=== PATIENT | female | born 1965 | race Two or more races ===

== ENCOUNTER 2020-11-22 10:25 | Inpatient (IN) | payer BC, MEDICAID ==
[~2020-11-22] VITALS: Ht 170.2 cm; Wt 101.6 kg
[2020-11-22] MEDS ORDERED: methylPREDNISolone SOD SUCC 125 MG/2 ML VL IV ONE (10:45)
[2020-11-22] MEDS ORDERED: CHOLECALCIFEROL (VITD3) 2,000 UNIT CAP/TAB PO ONE (10:45)
[2020-11-22] MEDS ORDERED: ZINC SULFATE 220mg CAP or TAB PO ONE (10:45)
[2020-11-22] MEDS ORDERED: ACETAMINOPHEN 325 MG TAB PO ONE (10:45)
[2020-11-22] MEDS ORDERED: ASCORBIC ACID 500 MG TAB PO ONE (10:45)
[2020-11-22 11:36] LABS: Basophils # (auto) 0 10 ^3/uL (0-0.2); Basophils % (auto) 0.4 % (0.0-2.0); Eosinophils # (auto) 0 10 ^3/uL (0-0.8); Eosinophils % (auto) 0.4 % (0.0-7.0); Hematocrit 39.7 % (36.0-46.0); Hemoglobin 13.7 g/dL (12.2-16.2); Lymphocytes # (auto) 0.9 10 ^3/uL (0.4-5.4); Lymphocytes % (auto) 27.8 % (10.0-50.0); Mean Corpuscular Hemoglobin 30.4 pg (28.0-32.0); Mean Corpuscular Hgb Conc. 34.6 g/dL (32.0-36.0); Mean Corpuscular Volume 87.8 fL (80.0-100.0); Monocytes # (auto) 0.2 10 ^3/uL (0-1.3); Monocytes % (auto) 5.8 % (0.0-12.0); Neutrophils # (auto) 2.2 10 ^3/uL (1.6-8.6); Neutrophils % (auto) 65.6 % (37.0-80.0); Red Blood Cells 4.52 10^6/uL (4.0-5.20); Red Cell Distribution Width 12.3 % (11.8-14.3); White Blood Cell 3.4 10^3/uL (4.4-10.8)
[2020-11-22 11:59] LABS: Albumin 3.7 g/dL (3.4-5.0); Anion Gap 9 (5-15); Blood Urea Nitrogen 11 mg/dL (7-18); Calcium 8.4 mg/dL (8.5-10.1); Carbon Dioxide 23 mmol/L (21-32); Chloride 105 mmol/L (98-107); Glucose 188 mg/dL (74-106); Potassium 3.7 mmol/L (3.5-5.1); Sodium 137 mmol/L (136-145)
[2020-11-22 12:10] LABS: Alanine Aminotransferase 204 U/L (13-56); Alkaline Phosphatase 86 U/L (45-117); Aspartate Aminotransferase 99 U/L (15-37); BUN/Creatinine Ratio 17.7; Bilirubin, Total 0.4 mg/dL (0.2-1.0); CRP High Sensitivity 2.23 mg/dL (< 0.3); GFR African American 129 mL/min; GFR Non-African American 107 mL/min; Total Protein 8.1 g/dL (6.4-8.2)
[2020-11-22] MEDS ORDERED: ACETAMINOPHEN 500 MG TAB PO PRN (16:00)
[2020-11-22] MEDS ORDERED: ALBUTEROL SULF HFA 90MCG INH 200DOSE IN PRN (16:00)
[2020-11-22] MEDS ORDERED: REMDESIVIR PER PHARMACY 0 ML IV SCH (16:00)
[2020-11-22] MEDS ORDERED: NITROGLYCERIN 0.4 MG SL TAB SL PRN (16:15)
[2020-11-22] MEDS ORDERED: DEXTROSE (50%) 50ML SYRG IV ONE (16:15)
[2020-11-22] MEDS ORDERED: MORPHINE SULFATE INJECTION 2 MG/2 ML SYRG IV PRN (16:15)
[2020-11-22 16:38] LABS: Basophils # (auto) 0 10 ^3/uL (0-0.2); Basophils % (auto) 0.2 % (0.0-2.0); Eosinophils # (auto) 0 10 ^3/uL (0-0.8); Hematocrit 40.3 % (36.0-46.0); Hemoglobin 13.9 g/dL (12.2-16.2); Lymphocytes # (auto) 0.6 10 ^3/uL (0.4-5.4); Lymphocytes % (auto) 16.6 % (10.0-50.0); Mean Corpuscular Hemoglobin 30.5 pg (28.0-32.0); Mean Corpuscular Hgb Conc. 34.6 g/dL (32.0-36.0); Mean Corpuscular Volume 88.1 fL (80.0-100.0); Monocytes # (auto) 0.1 10 ^3/uL (0-1.3); Monocytes % (auto) 2.1 % (0.0-12.0); Neutrophils # (auto) 2.9 10 ^3/uL (1.6-8.6); Neutrophils % (auto) 81.1 % (37.0-80.0); Red Blood Cells 4.57 10^6/uL (4.0-5.20); Red Cell Distribution Width 12.2 % (11.8-14.3); White Blood Cell 3.6 10^3/uL (4.4-10.8)
[2020-11-22 16:51] LABS: Albumin 3.7 g/dL (3.4-5.0); Calcium 8.5 mg/dL (8.5-10.1); Magnesium 2.3 mg/dL (1.6-2.6); Potassium 3.8 mmol/L (3.5-5.1)
[2020-11-22 17:00] LABS: BUN/Creatinine Ratio 19.3; Bilirubin, Total 0.4 mg/dL (0.2-1.0); CRP High Sensitivity 2.76 mg/dL (< 0.3); Total Protein 8.2 g/dL (6.4-8.2)
[2020-11-22] MEDS ORDERED: InsuLIN REG 1unit/0.01ml Soln (100units/ml) SC ONE (17:00)
[2020-11-22] MEDS ORDERED: ACCU-CHEK COMFORT CURVE STRIP VI ONE (17:00)
[2020-11-22 17:03] LABS: Thyroid Stimulating Hormone 0.24 uIU/mL (0.358-3.74)
[2020-11-22 17:47] LABS: Urine Bacteria NONE SEEN /hpf (None Seen); Urine Blood Negative /uL (Negative); Urine Mucus FEW (None Seen); Urine Specific Gravity 1.027 (1.001-1.035); Urine WBC 5 /hpf (0 - 5)
[2020-11-22] MEDS ORDERED: REMDESIVIR 200 MG in NS 210ml LOADING DOSE ADULT IV ONE (18:00)
[2020-11-22] MEDS: ENOXAPARIN SOD 40 MG/0.4 ML SYRINGE SC SCH (22:24)
[2020-11-22] MEDS: ALBUTEROL SULF HFA 90MCG INH 200DOSE IN SCH (22:25)
[2020-11-23 01:30] VITALS: BP 117/56
[2020-11-23 05:27] LABS: Basophils # (auto) 0 10 ^3/uL (0-0.2); Basophils % (auto) 0.6 % (0.0-2.0); Eosinophils # (auto) 0 10 ^3/uL (0-0.8); Eosinophils % (auto) 0.1 % (0.0-7.0); Hematocrit 38.5 % (36.0-46.0); Lymphocytes # (auto) 1.4 10 ^3/uL (0.4-5.4); Lymphocytes % (auto) 33.4 % (10.0-50.0); Mean Corpuscular Hemoglobin 30.1 pg (28.0-32.0); Mean Corpuscular Hgb Conc. 33.8 g/dL (32.0-36.0); Monocytes # (auto) 0.4 10 ^3/uL (0-1.3); Monocytes % (auto) 8.5 % (0.0-12.0); Neutrophils # (auto) 2.4 10 ^3/uL (1.6-8.6); Neutrophils % (auto) 57.4 % (37.0-80.0); Nucleated Red Blood Cells % 0.1 %; Red Blood Cells 4.33 10^6/uL (4.0-5.20); Red Cell Distribution Width 12.3 % (11.8-14.3); White Blood Cell 4.2 10^3/uL (4.4-10.8)
[2020-11-23 05:45] LABS: Albumin 3.5 g/dL (3.4-5.0); Calcium 8.5 mg/dL (8.5-10.1); Potassium 3.4 mmol/L (3.5-5.1)
[2020-11-23 05:54] LABS: BUN/Creatinine Ratio 27.1; Bilirubin, Total 0.3 mg/dL (0.2-1.0); CRP High Sensitivity 2.63 mg/dL (< 0.3); Total Protein 7.6 g/dL (6.4-8.2)
[2020-11-23] MEDS: ALBUTEROL SULF HFA 90MCG INH 200DOSE IN SCH ×3 (06:38→22:03)
[2020-11-23] MEDS: AZITHROMYCIN 500MG/ 250ML 250 ML IV SCH (10:37)
[2020-11-23] MEDS: DexAMETHasone SOD PHOS 10MG/1ML VIAL INJ IV SCH (10:38)
[2020-11-23] MEDS: ZINC SULFATE 220mg CAP or TAB PO SCH (10:39)
[2020-11-23] MEDS: ASCORBIC ACID 1,000 MG TAB PO SCH (10:39)
[2020-11-23] MEDS: ENOXAPARIN SOD 40 MG/0.4 ML SYRINGE SC SCH ×2 (10:39→21:46)
[2020-11-23] MEDS: CHOLECALCIFEROL (VITD3) 2,000 UNIT CAP/TAB PO SCH (10:39)
[2020-11-23] MEDS: REMDESIVIR 100mg 100 MG in SODIUM CHL 0.9% 230 ML IV SCH (14:23)
[2020-11-23] MEDS ORDERED: DEXTROSE (50%) 50ML SYRG IV PRN (21:15)
[2020-11-23] MEDS: InsuLIN REG 1unit/0.01ml Soln (100units/ml) SC SCH (21:46)
[2020-11-23] MEDS: ACCU-CHEK COMFORT CURVE STRIP VI SCH (21:46)
[2020-11-23 22:07] VITALS: BP 140/76
[2020-11-23 22:50] VITALS: BP 140/76
[2020-11-23] MEDS ORDERED: METF-370 PO (23:02)
[2020-11-24 05:30] VITALS: BP 110/67
[2020-11-24 06:33] LABS: Albumin 3.2 g/dL (3.4-5.0); Calcium 8.3 mg/dL (8.5-10.1); Potassium 3.2 mmol/L (3.5-5.1)
[2020-11-24] MEDS: ACCU-CHEK COMFORT CURVE STRIP VI SCH ×4 (06:36→22:22)
[2020-11-24] MEDS: InsuLIN REG 1unit/0.01ml Soln (100units/ml) SC SCH ×4 (06:41→23:05)
[2020-11-24 06:42] LABS: Basophils # (auto) 0 10 ^3/uL (0-0.2); Basophils % (auto) 0.3 % (0.0-2.0); Eosinophils # (auto) 0 10 ^3/uL (0-0.8); Eosinophils % (auto) 0.4 % (0.0-7.0); Hematocrit 37.6 % (36.0-46.0); Hemoglobin 12.8 g/dL (12.2-16.2); Lymphocytes # (auto) 1.9 10 ^3/uL (0.4-5.4); Lymphocytes % (auto) 52.8 % (10.0-50.0); Mean Corpuscular Hemoglobin 30.3 pg (28.0-32.0); Mean Corpuscular Hgb Conc. 34.2 g/dL (32.0-36.0); Mean Corpuscular Volume 88.6 fL (80.0-100.0); Monocytes # (auto) 0.3 10 ^3/uL (0-1.3); Monocytes % (auto) 8.9 % (0.0-12.0); Neutrophils # (auto) 1.3 10 ^3/uL (1.6-8.6); Neutrophils % (auto) 37.6 % (37.0-80.0); Nucleated Red Blood Cells % 0.1 %; Red Blood Cells 4.24 10^6/uL (4.0-5.20); Red Cell Distribution Width 12.4 % (11.8-14.3); White Blood Cell 3.6 10^3/uL (4.4-10.8)
[2020-11-24 07:00] LABS: BUN/Creatinine Ratio 26.5
[2020-11-24 07:01] LABS: Bilirubin, Total 0.2 mg/dL (0.2-1.0); CRP High Sensitivity 1.75 mg/dL (< 0.3); Total Protein 7.3 g/dL (6.4-8.2)
[2020-11-24 08:50] VITALS: BP 118/74
[2020-11-24] MEDS: ALBUTEROL SULF HFA 90MCG INH 200DOSE IN SCH ×2 (10:01→22:23)
[2020-11-24] MEDS ORDERED: POTASSIUM CHL 20 Meq TABLET PO ONE (10:30)
[2020-11-24] MEDS: CHOLECALCIFEROL (VITD3) 2,000 UNIT CAP/TAB PO SCH (10:51)
[2020-11-24] MEDS: ASCORBIC ACID 1,000 MG TAB PO SCH (10:51)
[2020-11-24] MEDS: ZINC SULFATE 220mg CAP or TAB PO SCH (10:51)
[2020-11-24] MEDS: DexAMETHasone SOD PHOS 10MG/1ML VIAL INJ IV SCH (10:52)
[2020-11-24] MEDS: AZITHROMYCIN 500MG/ 250ML 250 ML IV SCH (10:52)
[2020-11-24] MEDS: ENOXAPARIN SOD 40 MG/0.4 ML SYRINGE SC SCH ×2 (10:52→22:22)
[2020-11-24 12:30] VITALS: BP 101/66
[2020-11-24] MEDS: REMDESIVIR 100mg 100 MG in SODIUM CHL 0.9% 230 ML IV SCH (15:24)
[2020-11-24 16:50] VITALS: BP 119/70
[2020-11-24 21:57] VITALS: BP 119/62
[2020-11-25 05:00] VITALS: BP 100/65
[2020-11-25] MEDS: ACCU-CHEK COMFORT CURVE STRIP VI SCH ×4 (06:25→22:11)
[2020-11-25] MEDS: InsuLIN REG 1unit/0.01ml Soln (100units/ml) SC SCH ×4 (06:26→23:01)
[2020-11-25 06:50] LABS: Basophils # (auto) 0 10 ^3/uL (0-0.2); Basophils % (auto) 0.2 % (0.0-2.0); Eosinophils # (auto) 0 10 ^3/uL (0-0.8); Eosinophils % (auto) 0.4 % (0.0-7.0); Hematocrit 37.7 % (36.0-46.0); Hemoglobin 12.8 g/dL (12.2-16.2); Lymphocytes # (auto) 2.1 10 ^3/uL (0.4-5.4); Lymphocytes % (auto) 54.1 % (10.0-50.0); Mean Corpuscular Hemoglobin 30.1 pg (28.0-32.0); Mean Corpuscular Volume 88.5 fL (80.0-100.0); Monocytes # (auto) 0.3 10 ^3/uL (0-1.3); Monocytes % (auto) 9.2 % (0.0-12.0); Neutrophils # (auto) 1.4 10 ^3/uL (1.6-8.6); Neutrophils % (auto) 36.1 % (37.0-80.0); Nucleated Red Blood Cells % 0.1 %; Red Blood Cells 4.25 10^6/uL (4.0-5.20); White Blood Cell 3.8 10^3/uL (4.4-10.8)
[2020-11-25 06:51] LABS: Potassium 3.3 mmol/L (3.5-5.1)
[2020-11-25 07:08] LABS: Albumin 3.1 g/dL (3.4-5.0); BUN/Creatinine Ratio 32.4; Bilirubin, Total 0.3 mg/dL (0.2-1.0); Calcium 8.1 mg/dL (8.5-10.1); Total Protein 7.1 g/dL (6.4-8.2)
[2020-11-25] MEDS: ALBUTEROL SULF HFA 90MCG INH 200DOSE IN SCH (08:25)
[2020-11-25 09:00] VITALS: BP 121/72
[2020-11-25] MEDS: DexAMETHasone SOD PHOS 10MG/1ML VIAL INJ IV SCH (09:19)
[2020-11-25] MEDS: ZINC SULFATE 220mg CAP or TAB PO SCH (09:19)
[2020-11-25] MEDS: AZITHROMYCIN 500MG/ 250ML 250 ML IV SCH (09:19)
[2020-11-25] MEDS: ENOXAPARIN SOD 40 MG/0.4 ML SYRINGE SC SCH ×2 (09:20→22:11)
[2020-11-25] MEDS: ASCORBIC ACID 1,000 MG TAB PO SCH (09:20)
[2020-11-25] MEDS: CHOLECALCIFEROL (VITD3) 2,000 UNIT CAP/TAB PO SCH (09:20)
[2020-11-25 13:00] VITALS: BP 124/70
[2020-11-25] MEDS: REMDESIVIR 100mg 100 MG in SODIUM CHL 0.9% 230 ML IV SCH (15:55)
[2020-11-25 17:00] VITALS: BP 116/68
[2020-11-25 22:00] VITALS: BP 122/78
[2020-11-26 04:42] VITALS: BP 122/78
[2020-11-26 05:00] VITALS: BP 119/73
[2020-11-26] MEDS: ACCU-CHEK COMFORT CURVE STRIP VI SCH ×2 (06:06→11:40)
[2020-11-26] MEDS: InsuLIN REG 1unit/0.01ml Soln (100units/ml) SC SCH ×2 (06:15→11:47)
[2020-11-26 08:27] LABS: Basophils # (auto) 0 10 ^3/uL (0-0.2); Basophils % (auto) 0.2 % (0.0-2.0); Eosinophils # (auto) 0 10 ^3/uL (0-0.8); Eosinophils % (auto) 0.4 % (0.0-7.0); Hematocrit 37.1 % (36.0-46.0); Hemoglobin 12.8 g/dL (12.2-16.2); Lymphocytes # (auto) 2.2 10 ^3/uL (0.4-5.4); Lymphocytes % (auto) 48.7 % (10.0-50.0); Mean Corpuscular Hemoglobin 30.2 pg (28.0-32.0); Mean Corpuscular Hgb Conc. 34.5 g/dL (32.0-36.0); Mean Corpuscular Volume 87.6 fL (80.0-100.0); Monocytes # (auto) 0.4 10 ^3/uL (0-1.3); Neutrophils # (auto) 1.9 10 ^3/uL (1.6-8.6); Neutrophils % (auto) 41.7 % (37.0-80.0); Nucleated Red Blood Cells % 0.1 %; Red Blood Cells 4.24 10^6/uL (4.0-5.20); Red Cell Distribution Width 11.9 % (11.8-14.3); White Blood Cell 4.5 10^3/uL (4.4-10.8)
[2020-11-26] MEDS: ALBUTEROL SULF HFA 90MCG INH 200DOSE IN SCH ×3 (08:29→15:34)
[2020-11-26 08:57] LABS: Albumin 3.1 g/dL (3.4-5.0); Calcium 8.6 mg/dL (8.5-10.1); Potassium 3.2 mmol/L (3.5-5.1)
[2020-11-26 09:00] VITALS: BP 124/58
[2020-11-26 09:02] LABS: Bilirubin, Total 0.3 mg/dL (0.2-1.0)
[2020-11-26 09:06] LABS: BUN/Creatinine Ratio 34.1
[2020-11-26] MEDS: DexAMETHasone SOD PHOS 10MG/1ML VIAL INJ IV SCH (09:34)
[2020-11-26] MEDS: AZITHROMYCIN 500MG/ 250ML 250 ML IV SCH (09:34)
[2020-11-26] MEDS: CHOLECALCIFEROL (VITD3) 2,000 UNIT CAP/TAB PO SCH (09:35)
[2020-11-26] MEDS: ZINC SULFATE 220mg CAP or TAB PO SCH (09:35)
[2020-11-26] MEDS: ENOXAPARIN SOD 40 MG/0.4 ML SYRINGE SC SCH (09:35)
[2020-11-26] MEDS: ASCORBIC ACID 1,000 MG TAB PO SCH (09:35)
[2020-11-26 13:00] VITALS: BP 129/74
[2020-11-26] MEDS: REMDESIVIR 100mg 100 MG in SODIUM CHL 0.9% 230 ML IV SCH (13:27)
== END 2020-11-26 15:13 | disposition home or self-care (01) | DRG 177 ==
LOC: ER 10:25 → TELE 16:11 → OBSVTOIN 16:11 → TELE-EAST 11-23 20:54 → INTOOBSV 11-24 19:53 → OBSVTOIN 11-24 19:53
PROVIDERS: ADMIT Hospitalist; ATTEND Hospitalist
PROC: XW033E5 Introduction of Remdesivir Anti-infective into Peripheral Vein, Percutaneous Approach, New Technology Group 5 (ICD-10-PCS; principal; 2020-11-22)
DX: U07.1 COVID-19 (principal); J12.82 Pneumonia due to coronavirus disease 2019; J96.01 Acute respiratory failure with hypoxia; E11.9 Type 2 diabetes mellitus without complications; Z68.34 Body mass index [BMI] 34.0-34.9, adult; Z83.3 Family history of diabetes mellitus
CPT/HCPCS: 36415; 71045; 80053; 81001; 82728; 82962; 83036; 83605; 83615; 83735; 84443; 84484; 85025; 85379; 86141; 87040; 87426; 93005; 94640; 96365; 96372; 96375; G0378; J1100; J1815